=== PATIENT | male | born 1955 | race Two or more races ===

== ENCOUNTER 2021-03-26 20:33 | Inpatient (IN) | payer MEDICAID ==
[~2021-03-26] VITALS: Ht 177.8 cm; Wt 85.7 kg
--- NOTE | 2021-03-26 20:47 | NUR ---
PT BIBRA FROM HOME C/O FEVER, DIARRHEA, MILD SOB, AND HYPOTENSIVE. PER DAUGHTER, PT ATE 3 BAD EGGS THIS MORNING WHICH COULD BE THE REASON WHY THE PT IS HAVING DIARRHEA. PLACED IN BED 7 ON MANAGER STRATEGIC PARTNERSHIPS AND PULSE OX. NOTED PT TO BE TACHY, ER EMT AT BEDSIDE FOR EKG. LINE ESTABLISHED, AWAITING CASINO CASHIER MANAGER TO DRAW.
--- NOTE | 2021-03-26 20:50 | NUR ---
FIELD ASSEMBLY SUPERVISOR AT BEDSIDE FOR DRAW.
[2021-03-26] MEDS ORDERED: IV NS 0.9% 1,000 ML BAG IV ONE ×2 (21:00→22:00)
--- NOTE | 2021-03-26 21:02 | NUR ---
COVID SWAB COLLECTED AND GIVEN TO LAB
--- NOTE | 2021-03-26 21:02 | NUR ---
DISTRICT GAUGER AT PT'S BEDSIDE
--- NOTE | 2021-03-26 21:10 | NUR ---
PT NOT ABLE TO GIVE URINE SAMPLE AT THIS TIME; WILL TRY AGAIN LATER
[2021-03-26 21:18] LABS: CALCIUM, SERUM 8.1 mg/dL (8.5-10.1); CARBON DIOXIDE 17 mmol/L (21-32); CHLORIDE 110 mmol/L (98-107); CREATININE 1.3 mg/dL (0.6-1.3); GLUCOSE 88 mg/dL (74-106); POTASSIUM 3.7 mmol/L (3.5-5.1); SODIUM SERUM 141 mmol/L (136-145); UREA NITROGEN, BLOOD 22 mg/dL (7-18)
[2021-03-26 21:25] LABS: ALANINE AMINOTRANSFERASE 58 U/L (12-78); ALBUMIN 2.2 g/dL (3.4-5.0); ALKALINE PHOSPHATASE 144 U/L (46-116); ASPARTATE AMINOTRANSFERASE 71 U/L (15-37); BILIRUBIN,DIRECT 1.2 mg/dL (0.0-0.2); BILIRUBIN,TOTAL 2.9 mg/dL (0.2-1.0); TOTAL PROTEIN, SERUM 5.3 g/dL (6.4-8.2)
--- NOTE | 2021-03-26 21:29 | NUR ---
LACTIC ACID 5.8. ANNIE MORGAN AWARE
--- NOTE | 2021-03-26 21:41 | NUR ---
URINE COLLECTED AND SENT TO LAB
--- NOTE | 2021-03-26 21:42 | NUR ---
PT TAKEN TO CT VIA ALDO
[2021-03-26 21:43] LABS: BASOPHILS % (AUTO) 0.4 % (0.0-2.0); EOSINOPHILS % (AUTO) 1.6 % (0.0-6.0); HEMATOCRIT 35 % (39-51); HEMOGLOBIN 11.2 g/dL (13.5-17.5); LYMPHOCYTES # (AUTO) 0.2 K/uL (0.8-4.8); LYMPHOCYTES % (AUTO) 8.5 % (20.0-44.0); MEAN CORPUSCULAR HGB CONC 32 g/dl (31.0-36.0); MEAN CORPUSCULAR VOLUME 87 fL (80-96); MONOCYTES # (AUTO) 0.1 K/uL (0.1-1.30); MONOCYTES % (AUTO) 4.7 % (2.0-12.0); NEUTROPHILS # (AUTO) 1.8 K/uL (1.8-8.9); NEUTROPHILS % (AUTO) 84.8 % (43.0-81.0); RED BLOOD CELL COUNT(AUTO) 3.97 MIL/uL (4.5-6.0); WHITE BLOOD COUNT (AUTO) 2.1 K/uL (4.3-11.0)
--- NOTE | 2021-03-26 21:55 | NUR ---
PT RETURNED TO ER BED [address]
[2021-03-26] MEDS ORDERED: CEFTRIAXONE 1GM BAG (ER ONLY) 50 ML IV ONE ×2 (21:57→22:00)
[2021-03-26] MEDS ORDERED: MORPHINE SULFATE INJ 4 MG/ML DISP.SYRIN ONE (21:57)
[2021-03-26] MEDS ORDERED: MORPHINE SULFATE INJ 2 MG/ML DISP.SYRIN IV ONE (22:00)
[2021-03-26 22:01] LABS: BAND % (MANUAL) 20 % (0.0-5.0); LYMPHOCYTES % (MANUAL) 8 % (16-48); METAMYELOCYTES % 2 % (0-0); MONOCYTES % (MANUAL) 7 % (0-11.0); NEUTROPHILS % (MANUAL) 62 (42-76); PLATELET COUNT (AUTO) 40 K/uL (150-450)
[2021-03-26 22:02] LABS: REACTIVE LYMPHOCYTES 1 % (0-0)
--- NOTE | 2021-03-26 22:10 | NUR ---
MRSA SWAB COLLECTED AND SENT TO LAB. PATIENT'S BELONGINGS LIST DONE.
[2021-03-26 22:15] LABS: BILIRUBIN,URINE SMALL (NEGATIVE); COLOR,URINE ORANGE (YELLOW); LEUKOCYTE ESTERASE ,URINE NEGATIVE (NEGATIVE); NITRITE, URINE NEGATIVE (NEGATIVE); PROTEIN,URINE 30 mg/dl (NEGATIVE); UGLUCOSE NEGATIVE (NEGATIVE)
[2021-03-26 22:54] LABS: BACTERIA,URINE Few /HPF (None Seen); HYALINE CASTS, URINE Few /LPF (None Seen); MUCUS,URINE Many /LPF (None Seen); RBC,URINE 0-2 /HPF (0-2); SQUAMOUS EPITHELIAL CELL,UR Few /HPF (None Seen); WBC,URINE 0-2 /HPF (0-3)
[2021-03-26] MEDS ORDERED: LACT10SO3 PO (23:05)
[2021-03-26] MEDS ORDERED: PANT40TA49 PO (23:05)
[2021-03-26] MEDS ORDERED: TAMS-12 PO (23:05)
[2021-03-26] MEDS ORDERED: ZINC10LO5 PO (23:05)
[2021-03-26] MEDS ORDERED: CHOL100040 PO (23:05)
[2021-03-26] MEDS ORDERED: Z GUARD REMEDY 2 OZ OINT TP PRN (23:30)
[2021-03-26] MEDS ORDERED: ZOLPIDEM TARTRATE 5 MG TABLET PO PRN (23:30)
[2021-03-26] MEDS ORDERED: MAG HYDROX/AL HYDROX/SIMETH 30 ML UDC PO PRN (23:30)
[2021-03-26] MEDS ORDERED: ONDANSETRON HCL/PF 4 MG/2 ML VIAL IVP PRN (23:30)
[2021-03-26] MEDS ORDERED: MAGNESIUM HYDROXIDE 30 ML UDC PO PRN (23:30)
[2021-03-26] MEDS ORDERED: LACTULOSE 10 G/15 ML UDC (PYXIS) ONE (23:40)
[2021-03-26] MEDS: IV D5/ 0.9% NACL 1,000 ML IV PRN (23:48)
[2021-03-26] MEDS: LACTULOSE 10 G/15 ML UDC (PYXIS) PO SCH (23:49)
--- NOTE | 2021-03-26 23:49 | NUR ---
IZABELLA MORGAN AT PT'S BEDSIDE.
[2021-03-27] MEDS ORDERED: ZOSYN IVPB 3.375 G in IV D5W 50ml IV ONE (03:00)
[2021-03-27] MEDS ORDERED: PIPERACILLIN /TAZOBACTAM 3.375 G VIAL IV ONE (03:19)
[2021-03-27 05:26] LABS: BASOPHILS % (AUTO) 0.3 % (0.0-2.0); EOSINOPHILS % (AUTO) 0.2 % (0.0-6.0); HEMATOCRIT 32 % (39-51); HEMOGLOBIN 10.5 g/dL (13.5-17.5); LYMPHOCYTES # (AUTO) 0.1 K/uL (0.8-4.8); LYMPHOCYTES % (AUTO) 1.6 % (20.0-44.0); MEAN CORPUSCULAR HGB CONC 33 g/dl (31.0-36.0); MEAN CORPUSCULAR VOLUME 88 fL (80-96); MONOCYTES # (AUTO) 0.3 K/uL (0.1-1.30); MONOCYTES % (AUTO) 4.7 % (2.0-12.0); NEUTROPHILS # (AUTO) 6.5 K/uL (1.8-8.9); NEUTROPHILS % (AUTO) 93.2 % (43.0-81.0); RED BLOOD CELL COUNT(AUTO) 3.63 MIL/uL (4.5-6.0)
[2021-03-27 05:36] LABS: PLATELET COUNT (AUTO) 29 K/uL (150-450)
[2021-03-27] MEDS ORDERED: ACETAMINOPHEN 325 MG TABLET ONE (05:44)
[2021-03-27] MEDS: ACETAMINOPHEN 325 MG TABLET PO PRN ×2 (05:46→20:41)
[2021-03-27 05:49] LABS: CALCIUM, SERUM 7.6 mg/dL (8.5-10.1); CREATININE 1.6 mg/dL (0.6-1.3); MAGNESIUM 1.6 mg/dL (1.8-2.4); PHOSPHORUS 3.1 mg/dL (2.5-4.9); POTASSIUM 3.5 mmol/L (3.5-5.1)
--- NOTE | 2021-03-27 05:58 | NUR ---
PATIENT RESTING COMFORTABLY NO COMPLAINTS AT THIS TIME.
--- NOTE | 2021-03-27 07:31 | NUR ---
ASSESSED PT ON BED ASLEEP EASILY AROUSABLE, NOT IN RESPIRATORY DISTRESS, V/S STABLE, KEPT RESTED AND COMFORTABLE. WILL CONTINUE TO MONITOR.
[2021-03-27] MEDS: LACTULOSE 10 G/15 ML UDC (PYXIS) PO SCH ×3 (09:00→16:07)
[2021-03-27] MEDS ORDERED: LACTULOSE 10 G/15 ML UDC (PYXIS) ONE (09:27)
[2021-03-27] MEDS ORDERED: Magnesium 1GM/D5W 100ML PREMIX 100 ML IV SCH (09:30)
[2021-03-27] MEDS ORDERED: Magnesium 1GM/D5W 100ML PREMIX 100 ML IV ONE (09:50)
[2021-03-27] MEDS: IV D5/ 0.9% NACL 1,000 ML IV PRN ×2 (11:27→13:30)
--- NOTE | 2021-03-27 11:46 | NUR ---
PER RN PRESS BUCKER PT IS GOING TO 104
--- NOTE | 2021-03-27 12:20 | NUR ---
CALLED FOR REPORT RN ON BREAK WILL CALL BACK IN 10 MINS
--- NOTE | 2021-03-27 12:44 | NUR ---
REPORT GIVEN TO RN SOON FOR CAROL. WITH ONGOING IVF INFUSING WELL.
[2021-03-27] MEDS: PIPERACILLIN /TAZOBACTAM 3.375 G in IV D5W 100 ML IV SCH ×2 (13:31→20:11)
[2021-03-27 16:00] VITALS: BP 106/60
[2021-03-27] MEDS: ALBUMIN 25% 25 GM in PREMIX 1 EA IV SCH ×2 (16:06→21:24)
[2021-03-27 17:10] LABS: BAND % (MANUAL) 22 % (0.0-5.0); LYMPHOCYTES % (MANUAL) 3 % (16-48); MONOCYTES % (MANUAL) 6 % (0-11.0); NEUTROPHILS % (MANUAL) 69 (42-76)
--- NOTE | 2021-03-27 18:46 | NUR ---
RN NOTE PT RECEIVED FROM ER. PT STABLE AND AMBULATING. WILL CONTINUE TO MONITOR
[2021-03-28] VITALS: BP 92/51
[2021-03-28] MEDS: ALBUMIN 25% 25 GM in PREMIX 1 EA IV SCH ×2 (03:49→10:50)
[2021-03-28] MEDS: ACETAMINOPHEN 325 MG TABLET PO PRN (03:50)
[2021-03-28 04:00] VITALS: BP 90/43
[2021-03-28] MEDS: PIPERACILLIN /TAZOBACTAM 3.375 G in IV D5W 100 ML IV SCH (05:00)
[2021-03-28 07:10] LABS: BASOPHILS % (AUTO) 0.1 % (0.0-2.0); EOSINOPHILS % (AUTO) 0.1 % (0.0-6.0); HEMATOCRIT 26 % (39-51); HEMOGLOBIN 8.6 g/dL (13.5-17.5); LYMPHOCYTES # (AUTO) 0.2 K/uL (0.8-4.8); LYMPHOCYTES % (AUTO) 3.4 % (20.0-44.0); MEAN CORPUSCULAR HGB CONC 33 g/dl (31.0-36.0); MEAN CORPUSCULAR VOLUME 89 fL (80-96); MONOCYTES # (AUTO) 0.7 K/uL (0.1-1.30); MONOCYTES % (AUTO) 10.3 % (2.0-12.0); NEUTROPHILS % (AUTO) 86.1 % (43.0-81.0); RED BLOOD CELL COUNT(AUTO) 2.98 MIL/uL (4.5-6.0); WHITE BLOOD COUNT (AUTO) 6.9 K/uL (4.3-11.0)
--- NOTE | 2021-03-28 07:42 | NUR ---
RN OPENING NOTE RECEIVE REPORT FROM OUT GOING NURSE. PATIENT IN STABLE CONDITION AT TIME OF REPORT. RECEIVING O2 VIA NC @ 2/MIN. a/O X4. PLATELETS 29. WILL FOLLOW UP WITH AM LABS. PROPER ISOLATION PRECAUTION IN PLACE. ALL SAFETY MEASURE IN PLACE. BED ON LOWEST POSITION WITH HOB ELEVATED WITH 3 SIDE RAIL UP. CALL LIGHT WITHIN REACH. WILL CONTINUE TO MONITOR.
[2021-03-28 08:00] VITALS: BP 102/55
[2021-03-28 08:30] LABS: PLATELET COUNT (AUTO) 28 K/uL (150-450)
[2021-03-28 09:03] LABS: ALBUMIN 2.3 g/dL (3.4-5.0); BILIRUBIN,TOTAL 2.6 mg/dL (0.2-1.0); CALCIUM, SERUM 7.7 mg/dL (8.5-10.1); CREATININE 1.4 mg/dL (0.6-1.3); PHOSPHORUS 3.7 mg/dL (2.5-4.9); TOTAL PROTEIN, SERUM 4.6 g/dL (6.4-8.2)
[2021-03-28] MEDS: LACTULOSE 10 G/15 ML UDC (PYXIS) PO SCH ×3 (09:42→16:17)
[2021-03-28] MEDS: IV D5/ 0.9% NACL 1,000 ML IV PRN (10:39)
[2021-03-28] MEDS: CEFTRIAXONE 2 G in IV D5W 100 ML IV SCH (11:00)
[2021-03-28] MEDS ORDERED: MULT-1119 PO (14:29)
[2021-03-28] MEDS ORDERED: METH85CR17 TP (14:29)
[2021-03-28] MEDS ORDERED: VITA100014 PO (14:29)
[2021-03-28] MEDS ORDERED: SPIR50TA5 PO (14:29)
[2021-03-28] MEDS: RIFAXIMIN 550 MG TABLET PO SCH ×2 (14:41→16:17)
[2021-03-28 16:00] VITALS: BP 97/61
--- NOTE | 2021-03-28 18:49 | NUR ---
RN CLOSING NOTE PATIENT REMAIN IN STABLE CONDITION WITH NO SIGN OF DISTRESS THROUGHOUT SHIFT. RECEIVING OXYGEN VIA NC @2L/MIN. O2 SAT 98%. TOOK ALL MEDICATIONS. LACTULOSE WAS GIVEN. PATIENT HAD NUMEROUS BOWEL MOVEMENTS. RECEIVING D5 NS @100ML/HR. PLATELETS REMAIN LOW. 2 DOSE OF RIFAXIMIN WAS GIVEN. KIMBERLEE ISOLATION PRECAUTION IN PLACE. ALL SAFETY MEASURE IN PLACE. BED ON THE LOWEST POSITION WITH HOB ELEVATED AND 3 SIDE RAIL UP. CALL LIGHT WITHIN REACH. WILL CONTINUE TO MONITOR AND GIVE REPORT TO ON COMING NURSE.
[2021-03-28 20:00] VITALS: BP 99/60
[2021-03-28 20:33] LABS: BAND % (MANUAL) 21 % (0.0-5.0); LYMPHOCYTES % (MANUAL) 3 % (16-48); MONOCYTES % (MANUAL) 6 % (0-11.0); NEUTROPHILS % (MANUAL) 70 (42-76)
--- NOTE | 2021-03-28 21:45 | NUR ---
RN NOTES, INFORMED DR MEJÍA THAT PATIENT TIS C/O OF PAIN 9-10/10 BACK PAIN AND ABDOMEN PAIN, AND HE ONLY HAVE TYLENOL, AND DR MEJÍA REPLIED WIT ORDER FOR MORPHINE IVP 2MG Q4HR PRN, ORDER NOTED AND CARRIED OUT, WILL ADMINISTER ORDERED.
[2021-03-28] MEDS: MORPHINE SULFATE INJ 2 MG/ML DISP.SYRIN IV PRN (22:03)
[2021-03-29] VITALS: BP 114/55
[2021-03-29 04:00] VITALS: BP_SYST 110; BP_DIAS 59; BP_DIAS 60
[2021-03-29 06:05] LABS: BASOPHILS % (AUTO) 0.2 % (0.0-2.0); EOSINOPHILS % (AUTO) 1.5 % (0.0-6.0); HEMATOCRIT 24 % (39-51); LYMPHOCYTES # (AUTO) 0.4 K/uL (0.8-4.8); LYMPHOCYTES % (AUTO) 7.7 % (20.0-44.0); MEAN CORPUSCULAR HGB CONC 33 g/dl (31.0-36.0); MEAN CORPUSCULAR VOLUME 87 fL (80-96); MONOCYTES # (AUTO) 0.5 K/uL (0.1-1.30); MONOCYTES % (AUTO) 10.1 % (2.0-12.0); NEUTROPHILS # (AUTO) 4.1 K/uL (1.8-8.9); NEUTROPHILS % (AUTO) 80.5 % (43.0-81.0); RED BLOOD CELL COUNT(AUTO) 2.76 MIL/uL (4.5-6.0); WHITE BLOOD COUNT (AUTO) 5.1 K/uL (4.3-11.0)
[2021-03-29] MEDS: IV D5/ 0.9% NACL 1,000 ML IV PRN (06:15)
[2021-03-29 06:21] LABS: PLATELET COUNT (AUTO) 30 K/uL (150-450)
[2021-03-29 06:51] LABS: CALCIUM, SERUM 7.9 mg/dL (8.5-10.1); CREATININE 0.9 mg/dL (0.6-1.3); MAGNESIUM 1.7 mg/dL (1.8-2.4); POTASSIUM 3.4 mmol/L (3.5-5.1)
--- NOTE | 2021-03-29 06:58 | NUR ---
RN CLOSING NOTE PATIENT REMAIN IN STABLE CONDITION , @2L/MIN VIA NC, WITH OPTIMAL O2 SAT LEVEL, NO SOB/ACUTE DISTRESS NOTED, ST IN THE TELE MONITOR, WITH HR LOW 100S, GLORIA MIDLINE IN PLACE PATENT AND INTACT, CONT D5 NS @100ML/HR, PLATELETS THIS MORNING 30, ALL SAFETY MEASURE IN PLACE, BED ON THE LOWEST POSITION, HOB ELEVATED, SIDE RAIL UP X2. CALL LIGHT WITHIN REACH, WILL ENDORSE CONTINUITY OF CARE TO ONCOMING NURSE.
--- NOTE | 2021-03-29 07:40 | NUR ---
RN OPEN NOTE PATIENT RECEIVED IN BED IN STABLE CONDITION ALERT AND ORIENTED X4 ON 2L/MIN VIA NC, O2 SAT 96% NO SOB/ACUTE DISTRESS NOTED, BREATHING EVEN AND UNLABORED, TELE MONITOR READING ST, WITH HR LOW 100S, GLORIA MIDLINE IN PLACE PATENT AND INTACT, RUNNING D5 NS @100ML/HR, BILATERAL LEG EDEMA NOTED +1 UPON ASSESSMENT, ALL SAFETY MEASURE IN PLACE, BED ON THE LOWEST POSITION, HOB ELEVATED, SIDE RAIL UP X2. CALL LIGHT WITHIN REACH, WILL CONTINUE TO MONITOR
[2021-03-29 08:00] VITALS: BP 107/54
[2021-03-29] MEDS: LACTULOSE 10 G/15 ML UDC (PYXIS) PO SCH ×3 (08:41→16:36)
[2021-03-29] MEDS: RIFAXIMIN 550 MG TABLET PO SCH ×2 (08:41→16:36)
[2021-03-29 09:11] LABS: EOSINOPHILS % (MANUAL) 1 % (0-4); LYMPHOCYTES % (MANUAL) 7 % (16-48); MONOCYTES % (MANUAL) 8 % (0-11.0); NEUTROPHILS % (MANUAL) 84 (42-76)
[2021-03-29] MEDS ORDERED: POTASSIUM CHLORIDE 20 MEQ TAB.PRT.SR PO SCH (09:30)
[2021-03-29] MEDS ORDERED: K PHOS NEUTRAL 250 MG TABLET PO ONE (09:30)
--- NOTE | 2021-03-29 10:30 | NUR ---
RN NOTES DOCTOR AT BED SIDE, OK TO STOP IV FLUIDS FOR NOW WILL CONTINUE TO MONITOR VITAL SIGN
[2021-03-29] MEDS: Magnesium 1GM/D5W 100ML PREMIX 100 ML IV SCH ×2 (11:08→12:34)
[2021-03-29] MEDS: CEFTRIAXONE 2 G in IV D5W 100 ML IV SCH (11:08)
[2021-03-29 12:15] VITALS: BP 95/56
[2021-03-29 16:00] VITALS: BP 99/56
--- NOTE | 2021-03-29 18:42 | NUR ---
RN CLOSING NOTE PATIENT REMAINS RESTING IN BED IN STABLE CONDITION ALERT AND ORIENTED X4 ON 2L/MIN VIA NC, O2 SAT 96% NO SOB/ACUTE DISTRESS NOTED, BREATHING EVEN AND UNLABORED, TELE MONITOR READING ST, GLORIA MIDLINE IN PLACE PATENT AND INTACT, D5 NS @100ML/HR DISCONTINUE PER DOCTOR ANDONIAN, PT HAS BILATERAL LEG EDEMA NOTED, DOCTOR ANDONIAN NOTIFIED, ALL NEEDS MET AND ALL MEDICATIONS ADMINISTERED, SAFETY MEASURE IN PLACE, BED ON THE LOWEST POSITION, HOB ELEVATED, SIDE RAIL UP X2. CALL LIGHT WITHIN REACH, WILL ENDORSE TO MAJOR ASSEMBLER RN
[2021-03-29] MEDS: MORPHINE SULFATE INJ 2 MG/ML DISP.SYRIN IV PRN (22:57)
--- NOTE | 2021-03-29 23:40 | NUR ---
PATIENT RECEIVED IN BED ALERT AND VERBALLY RESPONSIVE. ON O2 INHALATION AT 2L/MIN VIA N/C, O2 SAT 97%. NO ACUTE RESPIRATORY DISTRESS NOTED. C/O GENERALIZED BODY PAIN 9-10 PAIN SCALE, MORPHINE SULFATE 2 MG IV PUSH GIVEN, EFFECTIVE AFTER 30 MIN. RESIDENT STATED, PAIN SUBSIDED 1/10 PAIN SCALE. RESTING AT THIS MOMENT. PATIENT ABLE TO AMBULATE W/ CANE. ASSISTED HIM TO THE RESTROOM. WILL CONTINUE TO MONITOR FOR ANY CHANGES
[2021-03-30] VITALS: BP 96/52
--- NOTE | 2021-03-30 06:30 | NUR ---
RN CLOSING NOTES: PATIENT STAYED IN BED, ALERT AND VERBALLY RESPONSIVE. O2 SAT 94% AT 2L/MIN VIA NASAL CANNULA. ABLE TO AMBULATE BY HERSELF TO THE RESTROOM WITH CANE. NO C/O PAIN OR DISCOMFORT AT THIS MOMENT. NO ACUTE DISTRESS. COOPERATIVE WITH CARE. BED IN LOW POSITION AND LOCKED. PLACE CALL LIGHT WITH IN REACH. WILL ENDORSE TO MORNING SHIFT
[2021-03-30 06:55] LABS: BASOPHILS % (AUTO) 0.4 % (0.0-2.0); EOSINOPHILS % (AUTO) 5.9 % (0.0-6.0); HEMATOCRIT 27 % (39-51); LYMPHOCYTES # (AUTO) 0.6 K/uL (0.8-4.8); LYMPHOCYTES % (AUTO) 14.1 % (20.0-44.0); MEAN CORPUSCULAR HGB CONC 34 g/dl (31.0-36.0); MEAN CORPUSCULAR VOLUME 86 fL (80-96); MONOCYTES # (AUTO) 0.7 K/uL (0.1-1.30); MONOCYTES % (AUTO) 15.4 % (2.0-12.0); NEUTROPHILS # (AUTO) 2.7 K/uL (1.8-8.9); NEUTROPHILS % (AUTO) 64.2 % (43.0-81.0); WHITE BLOOD COUNT (AUTO) 4.2 K/uL (4.3-11.0)
[2021-03-30 07:15] LABS: CALCIUM, SERUM 7.5 mg/dL (8.5-10.1); CREATININE 0.8 mg/dL (0.6-1.3); MAGNESIUM 1.7 mg/dL (1.8-2.4); PHOSPHORUS 2.3 mg/dL (2.5-4.9); POTASSIUM 3.5 mmol/L (3.5-5.1)
[2021-03-30 07:24] LABS: PLATELET COUNT (AUTO) 41 K/uL (150-450)
[2021-03-30 08:00] VITALS: BP 111/57
[2021-03-30] MEDS: LACTULOSE 10 G/15 ML UDC (PYXIS) PO SCH ×3 (09:09→16:17)
[2021-03-30] MEDS: RIFAXIMIN 550 MG TABLET PO SCH ×2 (09:10→16:17)
[2021-03-30] MEDS ORDERED: MAGNESIUM OXIDE 400 MG TABLET PO ONE (10:30)
[2021-03-30] MEDS ORDERED: METHYL SALICYLATE/MENTHOL 28GM 28 GM TUBE TP PRN (10:30)
[2021-03-30] MEDS: CEFTRIAXONE 2 G in IV D5W 100 ML IV SCH (10:32)
--- NOTE | 2021-03-30 10:59 | NUR ---
CLINICAL TRIAL ASSOCIATE OPENING NOTES PATIENT RECEIVED IN BED IN STABLE CONDITION A/O X4 ON 2L/MIN NC, O2 SAT 96% NO SOB/OR COMPLAINTS OF PAIN, BREATHING UNLABORED, GLORIA MIDLINE IN PLACE PATENT AND INTACT, RUNNING D5 NS @100ML/HR, BILATERAL LEG EDEMA NOTED +1 UPON ASSESSMENT, ALL SAFETY MEASURES RENDERED, BED IN LOWEST LOCKED POSITION, HOB ELEVATED, SIDE RAIL UP X2. CALL LIGHT WITHIN REACH.
[2021-03-30 11:30] LABS: BAND % (MANUAL) 2 % (0.0-5.0); EOSINOPHILS % (MANUAL) 2 % (0-4); LYMPHOCYTES % (MANUAL) 10 % (16-48); MONOCYTES % (MANUAL) 14 % (0-11.0); NEUTROPHILS % (MANUAL) 72 (42-76)
[2021-03-30] MEDS ORDERED: K PHOS NEUTRAL 250 MG TABLET PO ONE (12:00)
[2021-03-30 16:00] VITALS: BP 108/59
--- NOTE | 2021-03-30 19:15 | NUR ---
RN CLOSING NOTE, PATIENT REMAIN IN STABLE CONDITION , @2L/MIN VIA NC, WITH OPTIMAL O2 SAT LEVEL, NO SOB/ACUTE DISTRESS NOTED, NSR IN THE TELE MONITOR, WITH HR 7090S, GLORIA MIDLINE IN PLACE PATENT AND INTACT, DAUGHTER JUST CALLED AND CONCERN ABOUT MEDICATIONS, DOSES DN FREQUENCIES, INFORMED THAT IS THE END OF THE SHIFT AND WILL ENDORSE TO ONCOMING NURSE TO LET DR KNOW, ALL SAFETY MEASURE IN PLACE, BED ON THE LOWEST POSITION, HOB ELEVATED, SIDE RAIL UP X2. CALL LIGHT WITHIN REACH, WILL ENDORSE CONTINUITY OF CARE TO ONCOMING NURSE.
--- NOTE | 2021-03-30 19:30 | NUR ---
RN NOTES RECEIVED PT FOR CONTINUITY OF CARE. PATIENT A/OX4 IN NO S/SX OF ACUTE DISTRESS AT THIS TIME; CURRENTLY ON 2L OF 02 VIA NC; WITH 02 SAT >95% AT THIS TIME. WILL ENSURE SAFETY MEASURES WITHIN THE SHIFT. PATIENT BED ALARM IS ON. HEAD OF BED ELEVATED. BED IS LOCKED, IN LOWEST POSITION AND SIDE RAILS UP. CALL LIGHT WITHIN REACH OF THE PATIENT. APPLICABLE ISOLATION PRECAUTIONS IN PLACE. WILL CONTINUE TO MONITOR AND REASSESS FOR ANY CHANGES AND WILL CARRY OUT ANY ONGOING AND ACTIVE MD ORDER.
[2021-03-30 20:00] VITALS: BP 103/52
[2021-03-31] VITALS: BP 108/58
--- NOTE | 2021-03-31 | NUR ---
RN NOTES PATIENT REMAINED TO BE IN NO SIGNS OF ACUTE RESPIRATORY DISTRESS , VITAL SIGNS WNL AT THIS TIME. WILL CONTINUE TO MONITOR AND REASSESS FOR ANY CHANGES THROUGHOUT THE SHIFT.
[2021-03-31] MEDS: MORPHINE SULFATE INJ 2 MG/ML DISP.SYRIN IV PRN (00:50)
[2021-03-31 04:00] VITALS: BP 104/62
--- NOTE | 2021-03-31 04:00 | NUR ---
RN NOTES PATIENT REMAINED TO BE IN NO SIGNS OF ACUTE RESPIRATORY DISTRESS , VITAL SIGNS STABLE AT THIS TIME. AM PATIENT CARE DONE. WILL CONTINUE TO MONITOR AND REASSESS FOR ANY CHANGES THROUGHOUT THE SHIFT.
--- NOTE | 2021-03-31 05:00 | NUR ---
RN NOTES CALLED [facility] UN[facility] AND SPOKE WITH DINA PROVIDED ENDORSEMENT/TRANSFER REPORT REGARDING PT; ALL PERTINENT INFO PROVIDED.
--- NOTE | 2021-03-31 05:30 | NUR ---
ENGINEER GAS PUMPING STATIONHEALTH OCCUPATIONS TEACHER NOTE PATIENT ARRIVED ON UNIT FROM [facility]. PT ALERT/ORIENTED X 4, PT ABLE TO MAKE NEEDS KNOWN. PT DENIES PAIN AT THIS TIME. PT STABLE ON 2 LPM OF OXYGEN VIA NC, NO S/S OF DISTRESS OR SOB NOTED, BREATHING EVEN AND UNLABORED. PT ON EXTERNAL CARDIAC MONITORING READING SINUS RHYTHM, HR: 76, VITAL SIGNS WNL. PT IS AMBULATORY WITH CANE. GLORIA MIDLINE AND RIGHT HAND #22G IV ACCESS INTACT AND FLUSHING WELL. PT BELONGINGS ACCOUNTED FOR. SAFETY MEASURES IN PLACE: CALL LIGHT WITHIN REACH, SIDE RAILS UP X 2, BED LOCKED IN LOW POSITION. WILL CONTINUE TO MONITOR PATIENT
--- NOTE | 2021-03-31 05:35 | NUR ---
RN NOTES PT TRANSFERRED TO [facility] UNIT [id number]; RECEIVED BY MARTINA ARROYO FOR CAROL. RECEIVED PT IN STABLE CONDITION; V/S WNL. ALL BELONGINGS, MEDICATIONS AND CHART PROVIDED TO RN, KIER PLEATER MADE WELL AWARE.
[2021-03-31 06:45] LABS: BASOPHILS % (AUTO) 0.6 % (0.0-2.0); HEMATOCRIT 29 % (39-51); HEMOGLOBIN 9.9 g/dL (13.5-17.5); LYMPHOCYTES # (AUTO) 0.8 K/uL (0.8-4.8); LYMPHOCYTES % (AUTO) 17.9 % (20.0-44.0); MEAN CORPUSCULAR HGB CONC 34 g/dl (31.0-36.0); MEAN CORPUSCULAR VOLUME 86 fL (80-96); MONOCYTES # (AUTO) 0.8 K/uL (0.1-1.30); MONOCYTES % (AUTO) 18.8 % (2.0-12.0); NEUTROPHILS # (AUTO) 2.2 K/uL (1.8-8.9); NEUTROPHILS % (AUTO) 53.7 % (43.0-81.0); PLATELET COUNT (AUTO) 51 K/uL (150-450); RED BLOOD CELL COUNT(AUTO) 3.42 MIL/uL (4.5-6.0); WHITE BLOOD COUNT (AUTO) 4.2 K/uL (4.3-11.0)
[2021-03-31 07:30] LABS: CALCIUM, SERUM 7.5 mg/dL (8.5-10.1); CREATININE 0.9 mg/dL (0.6-1.3); MAGNESIUM 1.7 mg/dL (1.8-2.4); POTASSIUM 3.5 mmol/L (3.5-5.1)
--- NOTE | 2021-03-31 07:30 | NUR ---
CONTINUOUS PICKLING LINE PICKLER HELPER CLOSING NOTES PATIENT AWAKE IN ROOM, ALERT/ORIENTED X 4. NO SIGNIFICANT CHANGES THE REST OF SHIFT. PT STABLE ON 2 LPM OF OXYGEN VIA NASAL CANNULA, NO S/S OF DISTRESS OR SOB NOTED, BREATHING EVEN AND UNLABORED. PT ON EXTERNAL EQUIPMENT TECH READING SINUS RHYTHM. SAFETY MEASURES IN PLACE: CALL LIGHT WITHIN REACH, SIDE RAILS UP X 2, BED LOCKED IN LOW POSITION. ENDORSED TO DAY SHIFT NURSE FOR CONTINUITY OF CARE
--- NOTE | 2021-03-31 07:48 | NUR ---
MEDICAL LIAISON OPENING NOTES RECEIVED Pt AWAKE IN ROOM, ALERT/ORIENTED X 4. Pt ON 2.5 L OF O2 VIA NASAL CANNULA, BREATHING IS EVEN AND UNLABORED. NO C/O OF PAIN OR DISTRESS NOTED AT THIS TIME. Pt HAS A R UPPER ARM MIDLINE 18g AND A R HAND IV 22g. SAFETY MEASURES ARE IN PLACE: BED IS LOCKED AND IN THE LOWEST POSITION, CALL LIGHT AND BEDSIDE TABLE ARE WITHIN REACH, SIDE RAILS UP X 2, WILL CONTINUE TO MONITOR THROUGHOUT THE SHIFT
[2021-03-31 08:00] VITALS: BP 107/58
[2021-03-31] MEDS: RIFAXIMIN 550 MG TABLET PO SCH ×2 (08:19→16:22)
[2021-03-31] MEDS: LACTULOSE 10 G/15 ML UDC (PYXIS) PO SCH ×3 (08:19→16:22)
[2021-03-31] MEDS: TAMSULOSIN 0.4 MG CAP.SR.24H PO SCH (08:19)
[2021-03-31] MEDS: CHOLECALCIFEROL 1,000 UNIT TABLET (VIT D3) PO SCH (08:19)
[2021-03-31] MEDS: MULTIVITAMINS,THERAGRAN 1 UDTAB TABLET PO SCH (08:19)
[2021-03-31] MEDS: ZINC SULFATE 220 MG CAPSULE PO SCH (08:19)
[2021-03-31] MEDS: SPIRONOLACTONE 25 MG TABLET PO SCH (08:20)
[2021-03-31] MEDS ORDERED: VITAMIN A 10,000 UNIT CAPSULE PO SCH (09:00)
[2021-03-31] MEDS ORDERED: MAGNESIUM OXIDE 400 MG TABLET PO ONE (10:00)
[2021-03-31] MEDS: CEFTRIAXONE 2 G in IV D5W 100 ML IV SCH (10:20)
[2021-03-31 12:00] VITALS: BP 94/58
[2021-03-31 16:00] VITALS: BP 101/59
--- NOTE | 2021-03-31 18:53 | NUR ---
STAINED GLASS GLAZIER HELPER CLOSING NOTES Pt IS AWAKE IN ROOM, ALERT/ORIENTED X 4. NO S/S OF DISTRESS OR SOB NOTED, BREATHING IS EVEN AND UNLABORED. Pt IS CURRENTLY ON ROOM AIR AND TOLERATING WELL. NO C/O PAIN MADE AT THIS TIME. Pt HAS A R UPPER ARM MIDLINE 18g AND A R HAND 22g IV. PATENT AND INTACT. ALL NEEDS HAVE BEEN MET. SAFETY MEASURES ARE IN PLACE: CALL LIGHT AND BEDSIDE TABLE ARE WITHIN REACH, SIDE RAILS UP X 2, BED IS LOCKED AND IN LOWEST POSITION. WILL ENDORSE TO ONCOMING SHIFT
[2021-03-31] MEDS: LIDOCAINE 2% JEL 5 ML TUBE MM PRN (20:50)
--- NOTE | 2021-03-31 22:55 | NUR ---
RUBBER VULCANIZING MACHINE OPERATOR OPENING NOTES: RECEIVED PATIENT AWAKE, A/OX4 ABLE TO EXPRESS NEEDS , NO COMPLAIN OF PAIN AND DISCOMFORT AT THIS TIME, ON TELE MONITORING [id number], WITH GLORIA MIDLINE AND R HAND #22 SL, PATIENT IS AMBULATORY USING CANE AND ON SUPERVISION, REMIND PATIENT TO USE CALL LIGHTS WHEN NEEDED ASSISTANCE, PATIENT KEPT CLEAN AND DRY ALL NEEDS MET, WILL CONTINUE TO MONITOR.
[2021-03-31 23:24] VITALS: BP 113/66
[2021-04-01] VITALS: BP 105/58
[2021-04-01] MEDS: ACETAMINOPHEN 325 MG TABLET PO PRN (00:16)
--- NOTE | 2021-04-01 00:17 | NUR ---
RN NOTES: PATIENT COMPLAIN OF NECK PAIN BP AT 105/58 TYLENOL GIVEN FOR MILD PAIN PS-4 WILL CONTINUE TO MONITOR.
[2021-04-01 05:00] VITALS: BP 104/57
[2021-04-01 07:23] LABS: CALCIUM, SERUM 7.5 mg/dL (8.5-10.1); CREATININE 0.8 mg/dL (0.6-1.3); MAGNESIUM 1.9 mg/dL (1.8-2.4); POTASSIUM 3.6 mmol/L (3.5-5.1)
--- NOTE | 2021-04-01 07:43 | NUR ---
RN OPENING NOTES PATIENT IN BED RESTING, AWAKE. A/O X4. NO S/S OF PAIN NOTED AT THIS TIME. ON ROOM AIR, NO DISTRESS OR SHORTNESS OF BREATH NOTED. IV ACCESS GLORIA MIDLINE. PATIENT HAS AN EXTERNAL ADVANCED CLINICAL SPECIALIST WITH CURRENT READING OF S.R. WITH HR OF 92, NO CARDIAC DISTRESS NOTED. FALL AND SAFETY MEASURES IN PLACE, BED IN LOW AND LOCK POSITION, CALL LIGHT WITHIN EASY REACH, SIDE RAILS UP X2. WILL CONTINUE TO MONITOR.
--- NOTE | 2021-04-01 07:57 | NUR ---
BACON DE RINDER CLOSING NOTES: PATIENT SLEEP IN BED COMFORTABLY, BED IN LOW POSITION, CALL LIGHTS WITHIN REACH, NO COMPLAIN OF PAIN AND DISCOMFORT AT THIS TIME, ON TELE MONITORING, NO SYMPTOMS WAS OBSERVED, PATIENT IS A/O X4 ABLE TO EXPRESS KEPT CLEAN AND DRY ALL NEEDS MET ENDORSE TO INCOMING SHIFT.
[2021-04-01] MEDS: SPIRONOLACTONE 25 MG TABLET PO SCH (09:00)
[2021-04-01] MEDS ORDERED: PANTOPRAZOLE 40 MG TABLET.DR PO SCH (09:00)
[2021-04-01] MEDS: LACTULOSE 10 G/15 ML UDC (PYXIS) PO SCH ×3 (09:26→17:53)
[2021-04-01] MEDS: ZINC SULFATE 220 MG CAPSULE PO SCH (09:27)
[2021-04-01] MEDS: CHOLECALCIFEROL 1,000 UNIT TABLET (VIT D3) PO SCH (09:27)
[2021-04-01] MEDS: RIFAXIMIN 550 MG TABLET PO SCH ×2 (09:27→17:53)
[2021-04-01] MEDS: TAMSULOSIN 0.4 MG CAP.SR.24H PO SCH (09:28)
[2021-04-01] MEDS: MULTIVITAMINS,THERAGRAN 1 UDTAB TABLET PO SCH (09:30)
[2021-04-01] MEDS: CEFTRIAXONE 2 G in IV D5W 100 ML IV SCH (11:46)
[2021-04-01] MEDS: LIDOCAINE 2% JEL 5 ML TUBE MM PRN (11:50)
--- NOTE | 2021-04-01 18:39 | NUR ---
AUTOMATION/CONTROLS MANAGER NOTE PATIENT WAS DISCHARGED IN STABLE CONDITIONS. A/O X4. V/S STABLE. KEEPING IV ACCESS FOR IV ANTIBIOTICS. SKIN INTACT. NAME ARM BAND REMOVED. ALL BELONGINGS CHECKED AND SIGNED. HEALTH TEACHING AND DISCHARGE INSTRUCTIONS GIVEN AND VERBALIZED UNDERSTANDING. PATIENT LEFT UNIT VIA WHEELCHAIR, NO SIGNS OF DISTRESS, ACCOMPANIED BY RN TO THE LOBBY. PATIENT WENT HOME WITH FAMILY. CHARGE NURSE AWARE OF DISCHARGED.
[2021-04-02] MEDS ORDERED: CEFT2VIA14 IV (07:33)
[2021-04-02] MEDS ORDERED: RIFA550T PO (07:33)
--- NOTE | 2021-04-02 12:07 | NUR ---
per Dr. Sanabria pt will needs Rifacimin 550 mg po bid and to call pharmacy with new rx. [facility] called and according to pharmacist medication is not covered by his insurance, [facility] will not be able to provide the medication. Case talia Glez informed, and she will f/u dr. Sanabria and pt.
== END 2021-04-01 18:29 | disposition home health service (06) | DRG 720 ==
LOC: EDUNIT# 20:33 → ER 20:38 → TRANSITION 03-27 02:17 → TELE1 03-27 12:39 → TELE 03-31 05:38
PROVIDERS: ATTEND Family Medicine
PROC: 05H533Z Insertion of Infusion Device into Right Subclavian Vein, Percutaneous Approach (ICD-10-PCS; principal; 2021-03-29)
PROC: B546ZZA Ultrasonography of Right Subclavian Vein, Guidance (ICD-10-PCS; 2021-03-29)
DX: A41.9 Sepsis, unspecified organism (principal); N17.0 Acute kidney failure with tubular necrosis; I50.33 Acute on chronic diastolic (congestive) heart failure; E87.2 Acidosis; K65.2 Spontaneous bacterial peritonitis; E43 Unspecified severe protein-calorie malnutrition; D61.818 Other pancytopenia; C22.0 Liver cell carcinoma; D68.8 Other specified coagulation defects; K76.6 Portal hypertension; K74.60 Unspecified cirrhosis of liver; E86.1 Hypovolemia; Z20.822 Contact with and (suspected) exposure to COVID-19; D69.59 Other secondary thrombocytopenia; I95.9 Hypotension, unspecified; E88.09 Other disorders of plasma-protein metabolism, not elsewhere classified; R16.1 Splenomegaly, not elsewhere classified; R74.01 Elevation of levels of liver transaminase levels; I87.2 Venous insufficiency (chronic) (peripheral); R18.8 Other ascites; K52.9 Noninfective gastroenteritis and colitis, unspecified; L97.829 Non-pressure chronic ulcer of other part of left lower leg with unspecified severity; L97.819 Non-pressure chronic ulcer of other part of right lower leg with unspecified severity; Z86.19 Personal history of other infectious and parasitic diseases
CPT/HCPCS: 36410; 36415; 71045-TC; 80048-TC; 80053-TC; 80076-TC; 81001; 82140-TC; 82248-TC; 83605-TC; 83690-TC; 83735-TC; 84100-TC; 84484-TC; 85025-TC; 85730-TC; 86803; 87040-TC; 87081-TC; 87086-TC; 87186-TC; 87806; 93971-TC; A4216; C9803; G0378; J0696; J2270; J2405; J2543; J3475; J7030; J7042; J7050; J7060; J7070; P9047; U0003